=== PATIENT | female | born 2000 | race Caucasian/White ===

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

== ENCOUNTER 2023-07-31 23:48 | Emergency (ER) | payer BC, SELFPAY ==
[2023-07-31 23:52] VITALS: BP 156/98; PULSE 94; RESP 16; TEMP 36.6; O2SAT 100
[2023-08-01 00:15] VITALS: BP 156/100; PULSE 126; RESP 16; TEMP 36.7; O2SAT 96
--- NOTE | 2023-08-01 00:17 | ED.GENADULT ---
HPI - General Adult General Chief complaint: Allergic Reaction Stated complaint: rash Time Seen by Provider: 08/01/23 00:02 History of Present Illness HPI narrative: 22-year-old female reports for evaluation for pruritic skin lesions beneath her breast for 1 week. She also states she has a spot in her left anterior hip that started before the lesions on her chest wall started. She states they are extremely pruritic. She denies pain, drainage, fever, cough or congestion, lesions in her mouth her vulva. She denies recent insect bites, changes in medications or detergents, changes in lotions. Related Data Allergies Allergy/AdvReac Type Severity Reaction Status Date / Time No Known Allergies Allergy Verified 07/31/23 23:56 Review of Systems Review of Systems: CONSTITUTIONAL: Denies fever, chills, or sweats. EYES: Denies visual changes, redness, or discharge. ENT: Denies rhinorrhea, congestion, sore throat, or otalgia. CARDIOVASCULAR: Denies chest pain, palpitations, or edema. RESPIRATORY: Denies cough or dyspnea. GASTROINTESTINAL: Denies abdominal pain, nausea, vomiting, or diarrhea. GENITOURINARY: Denies dysuria or hematuria. SKIN: See HPI MUSCULOSKELETAL: Denies back pain, joint pain, or myalgia. NEUROLOGIC: Denies headache, numbness, or weakness. PSYCHIATRIC: Denies anxiety or depression. [facility] Past Medical History Medical History Healthy female adult Surgical History Surgical History No history of previous surgery Social History Social History Gender identity (if verbalized by the patient): Female Sexual Orientation (if Verbalized by the Patient): Straight or Heterosexual Exam Narrative: GENERAL: Well-appearing, well-nourished, and in no acute distress. HEAD: Normocephalic, atraumatic. EYES: PERRLA and EOMI. ENT: Nares clear, no rhinorrhea or epistaxis. Mucous membranes moist. no intraoral lesions NECK: Supple. CHEST: Clear to auscultation. No respiratory distress. HEART: Regular rate and rhythm. No murmur heard. Normal peripheral pulses. ABDOMEN: Soft, nontender, nondistended, normal active bowel sounds. EXTREMITIES: Normal range of motion. No edema. SKIN: macular papular salmon-colored rash to the anterior chest wall following the Harish lines with overlying silver scaling. There is a larger salmon colored lesion to the left anterior hip with overlying silver scaling. No drainage or surrounding erythema, induration, fluctuation. No crepitus. Negative [place] NEURO: No focal deficits. Alert and oriented x3 Course Vital Signs Vital signs: Vital Signs Temperature 97.8 F 07/31/23 23:52 Pulse Rate 94 07/31/23 23:52 Respiratory Rate 16 07/31/23 23:52 Blood Pressure 156/98 H 07/31/23 23:52 Pulse Oximetry 100 07/31/23 23:52 Oxygen Delivery Room Air 07/31/23 23:52 Temperature 98.6 F 08/01/23 00:19 Pulse Rate 87 08/01/23 00:41 Respiratory Rate 16 08/01/23 00:41 Blood Pressure 118/73 08/01/23 00:41 Pulse Oximetry 100 08/01/23 00:41 Oxygen Delivery Room Air 07/31/23 23:52 Medical Decision Making MDM Narrative Medical decision making narrative: 22-year-old female reports for evaluation for a pruritic rash for 1 week. See HPI for further history. Vitals significant for elevated blood pressure 156/98. She is afebrile and well-appearing exam. Exam is significant for the above, consistent with pityriasis rosea. No red flag findings. the patient follows dermatology for prior diagnosis of hidradenitis suppurativa. Encouraged her to close follow closely with her yard switcher as well as her PCP. Will start her on topical triamcinolone cream encouraged antihistamines daily. Strict ED return precautions discussed. She is agreeable to plan verbalized understanding. Roge
[2023-08-01 00:19] VITALS: BP 150/121; PULSE 110; RESP 15; TEMP 37; O2SAT 100
[2023-08-01] MEDS: diphenhydrAMINE HCl CAP 25 MG CAPSULE PO (00:26)
[2023-08-01 00:41] VITALS: BP 118/73; PULSE 87; RESP 16; O2SAT 100
== END 2023-08-01 01:00 | disposition home or self-care (01) ==
PROVIDERS: Emergency Provider Physician Assistant
DX: L42 Pityriasis rosea (principal)
CPT/HCPCS: 99283; A9270